=== PATIENT | male | born 1970 | race Two or more races ===

== ENCOUNTER 2016-06-22 04:15 | Emergency (ER) | payer MEDICAID ==
[2016-06-22] MEDS ORDERED: Albuterol/Ipratropium Neb 3 ML AERS HHN ONE ×4 (04:32→04:46)
--- NOTE | 2016-06-22 04:34 | ED Physician Chart ---
Chief Complaint/HPI - Patient Information Date Seen:: 06/22/16 Time Seen:: 04:20 Chief Complaint:: shortness of breath History of Present Illness:: 46-year-old male complains of acute, severe, worsening, shortness of breath 2 hours. Used his albuterol inhaler at home but symptoms progressively got worse. Denies chest pain, palpitations, nausea, vomiting, abdominal pain, headache, acute vision changes, fevers. Allergies:: Allergies Allergy/AdvReac Type Severity Reaction Status Date / Time No Known Allergies Allergy Verified 06/22/16 04:28 Historian:: Patient Review:: Nurse's Note Reviewed Review of Systems - Review of Systems Other: Complete system review otherwise unremarkable except as noted in history of present illness. Past Medical History - Past Medical History Past Medical History: Asthma/COPD Family History: None Social History: Non Smoker, No Alcohol, No Drug Use, Employed Surgical History: None Psychiatricy History: None Medication: Reviewed Family Medical History - Family Member Mother History Unknown: Yes Ethnicity: Physical Exam - Physical Examination Other:: INITIAL VITAL SIGNS: Reviewed by me GENERAL: Alert and interactive. Moderate respiratory distress. HEAD: Head is normocephalic and atraumatic EYES: EOMI. PERRL. No scleral icterus. No conjunctival injection ENT: Moist mucous membranes. NECK: Supple. No masses. Full range of motion RESPIRATORY: Tachypneic with bilateral wheezing on inspiration and expiration. CV: Regular rate and rhythm. No murmurs, rubs, or gallops ABDOMEN: Soft, non-distended, non-tender. No guarding. No rebound. No masses. EXTREMITIES: No deformity. No cyanosis. No edema. SKIN: Warm and dry. No obvious rashes. NEUROLOGIC: Alert and oriented. Face is symmetric. Speech is normal. Moves all extremities equally. Motor and sensory distally intact. ED Septic Shock - . Is Septic Shock (SBP<90, OR Lactate>4 mmol\L) present?: No Reassessment (Disposition) - Reassessment Reassessment:: Report recent URI. Patient received DuoNeb 2. Solu-Medrol 125 mg IV. 1 g of magnesium IV bolused over 30 minutes. Symptoms improved. Provided prescription for prednisone. Follow-up primary care 1-2 days. Return to ER precautions given. Patient understands and agrees with the plan. Blood pressure was noted to be elevated over 120/80. There were no signs of hypertension. Discussed the findings with the patient and recommended that the patient follow up with the primary care physician regarding the elevated blood pressure. Reassessment Condition:: Improved - Diagnosis Diagnosis:: Acute respiratory distress due to acute asthma exacerbation Elevated blood pressure without diagnosis of hypertension - Aftercare/Follow up Instructions Aftercare/Follow-Up Instructions:: Counseled pt regarding lab results/diagnosis & need follow up, Refer to Discharge Instructions Medication Prescribed:: Prednisone Azithromycin - Patient Disposition Discharge/Transfer:: Home Time:: 05:30 Condition at Disposition:: Improved ED Discharge Plan - Patient Disposition Admit/Discharge/Transfer: PT DISCHARGED HOME Condition at Disposition: Improved Instructions: Asthma, Adult
[2016-06-22] MEDS ORDERED: Magnesium Sulfate 1 gm/2 mL 2mL Vial IV ONE (04:35)
== END 2016-06-22 05:40 | disposition home or self-care (01) ==
LOC: ER 04:15
DX: J45.901 Unspecified asthma with (acute) exacerbation (principal); R03.0 Elevated blood-pressure reading, without diagnosis of hypertension; J44.9 Chronic obstructive pulmonary disease, unspecified
CPT/HCPCS: 99284; 96365; 96375; 94640 ×2; J2930; J3475; Z7502